=== PATIENT | male | born 1995 | race Caucasian/White ===

== ENCOUNTER 2025-04-11 12:11 | Day surgery (SDC) | payer BC ==
[~2025-04-11 12:11] MED LIST: TETRACAINE 0.5% OPHTH (PF) DROPS 4 ML BTL OP PRN
[2025-04-11] MEDS: IV FLUID CONTINUATION 1,000 ML IV ONE (12:38)
[2025-04-11 12:51] VITALS: RESP 16; TEMP 96.9
[2025-04-11] MEDS ORDERED: fentaNYL (PF) 50 MCG/ML 2 ML AMP ONE (12:59)
[2025-04-11] MEDS ORDERED: MIDAZOLAM 2 MG/2 ML VIAL ONE (12:59)
[2025-04-11] MEDS ORDERED: KETOROLAC 15 MG/ML 1 ML VIAL ONE (12:59)
[2025-04-11] MEDS: LACTATED RINGERS 1,000 ML BAG IV STA (13:14)
[2025-04-11] MEDS: BALANCED SALT IRRIG SOLN COMB2 15 ML IRRIG.SOLN INTRAOCULA ONE (13:48)
[2025-04-11] MEDS: TETRACAINE 0.5% OPHTH (PF) DROPS 4 ML BTL LEFT EYE ONE ×3 (13:49)
--- NOTE | 2025-04-11 14:16 | P.OP ---
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
[2025-04-11 15:04] VITALS: BP 120/72; PULSE 64
--- NOTE | 2025-04-11 21:47 | OP ---
OPERATIVE REPORT DATE OF SERVICE : 04/11/2025 PROCEDURE: Corneal debridement and ProKera placement on the left eye. 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 ANESTHESIA: Topical. ESTIMATED BLOOD LOSS: None. SPECIMEN TAKEN: None. NARRATIVE: After obtaining the appropriate consent, the patient was brought to the operating room. He was prepped and draped in the usual sterile manner. He was approached from his right temporal side and using a Noreen eyelid speculum, the eyelid was held open and debridement with a dry Weck-Raven sponge was begun. The epithelial surface of the cornea was extremely loose and 90% of the epithelial surface was removed without any difficulty. A 2nd dry Weck-Raven sponge was used to slightly scarify the surface and when that was completed, a ProKera device, reference # PKS, serial #[id number], was placed on the patient's cornea without any difficulty after rinsing with balanced salt solution. The eye was then partially closed at the temporal canthus with a Tegaderm. There were no additional drops put into the patient's eye at the end of the case. He was returned to Recovery in good condition and there were no complications with the procedure. MMODL / IJN: [id number] /
== END 2025-04-11 15:19 | disposition home or self-care (01) ==
LOC: OR 12:11
PROVIDERS: ATTEND Ophthalmology
DX: H18.523 Epithelial (juvenile) corneal dystrophy, bilateral (principal); H18.832 Recurrent erosion of cornea, left eye; Z79.624 Long term (current) use of inhibitors of nucleotide synthesis